=== PATIENT | male | born 1965 | race Hispanic/Latino ===

== ENCOUNTER 2018-12-21 06:32 | Outpatient (CLI) | payer BC ==
--- NOTE | 2018-12-21 07:59 | ULT ---
ABDOMINAL ULTRASOUND COMPLETE: HISTORY: Elevated LFTs. COMPARISON: 11/05/2015. FINDINGS: Status post cholecystectomy. Liver echogenicity is somewhat coarsened and increased, evidence for so me fatty change. Left renal upper pole cyst. Common bile duct 0.6 cm without significant intrahepat ic ductal dilatation. The right kidney is unremarkable. Visualized pancreas, IVC, aorta, and spleen are unremarkable. No renal hydronephrosis. No abscess or abnormal fluid collection. IMPRESSION: Coarse increased liver echogenicity, evidence for fatty change. Status post cholecystectomy. Small left upper pole renal cyst. POS: [facility]
== END 2018-12-21 06:33 | disposition home or self-care (01) ==
LOC: BICULT 06:32
PROVIDERS: ATTEND Family Medicine
DX: R79.89 Other specified abnormal findings of blood chemistry (principal); R93.2 Abnormal findings on diagnostic imaging of liver and biliary tract; K76.0 Fatty (change of) liver, not elsewhere classified; N28.1 Cyst of kidney, acquired; Z90.49 Acquired absence of other specified parts of digestive tract
CPT/HCPCS: 76700

== ENCOUNTER 2020-08-10 10:33 | Emergency (ER) | payer BC, SELFPAY ==
[2020-08-10] MEDS ORDERED: Azithromycin 250 MG TAB ONE (11:39)
[2020-08-10] MEDS ORDERED: cefTRIAXone\\ROCEPHIN 250 MG VIAL ONE (11:39)
[2020-08-10] MEDS ORDERED: Lidocaine 1% PF 5 ML VIAL ONE (11:40)
[2020-08-10 11:50] LABS: Bacteria/HPF None Seen HPF (None Seen); Bilirubin Negative (Negative); Blood, Urine Trace (Negative); Clarity Clear (Clear); Glucose, Urine (Dipstick) Greater than 1000 mg/dL (Negative); Ketone, Urine Negative (Negative); Leukocyte Negative Leu/uL (Negative); Nitrite Negative (Negative); Protein, Urine (Dipstick) Negative (Neg-Trace); RBC/HPF 0-3 HPF (0-3); Specific Gravity, Urine 1.035 (1.002-1.036); Squamous Epithelial None Seen HPF (0-3); Urobilinogen Normal mg/dL (Less than 2); WBC/HPF 0-3 HPF (0-3); pH, Urine 5.5 (5.0-9.0)
== END 2020-08-10 13:35 | disposition home or self-care (01) ==
LOC: ERS 10:33
DX: N50.89 Other specified disorders of the male genital organs (principal)
CPT/HCPCS: 81003; 81015; 96372; 99283; J0696

== ENCOUNTER 2021-09-24 15:32 | Outpatient (CLI) | payer SELFPAY ==
[2021-09-24 16:10] LABS: Hemoglobin 15.2 g/dL (13.5-17.5); Mean Corpuscular HGB CONC 33.2 g/dL (32.0-36.0); Mean Corpuscular Hemoglobin 30.5 pg (27.0-33.0); Mean Corpuscular Volume 91.8 fl (81.2-95.1); Mean Platelet Volume 12.8 fl (7.4-10.4); Platelet Count 170 10x3/uL (150-450); RBC Distribution Width 12.4 % (11.5-14.5); Red Blood Cell (RBC) Count 4.99 10x6/uL (4.32-5.72); White Blood Cell (WBC) Count 8.4 10x3/uL (3.5-10.5)
[2021-09-24 16:39] LABS: Anion Gap 14 mmol/L (10-20); BUN (Urea Nitrogen) 21 mg/dL (8.4-25.7); Calc. Creatinine Clearance 0 mL/min (70-130); Calcium 9.4 mg/dL (7.8-10.44); Carbon Dioxide 24 mmol/L (22-29); Chloride 105 mmol/L (98-107); Glucose 428 mg/dL (70-105); Potassium 4.5 mmol/L (3.5-5.1); Sodium 138 mmol/L (136-145)
[2021-09-25 00:43] LABS: SARS-CoV-2 PCR by NAA Not Detected (NotDetected)
== END 2021-09-24 15:33 | disposition home or self-care (01) ==
LOC: LABBT 15:32
PROVIDERS: ATTEND Neurological Surgery
DX: Z01.818 Encounter for other preprocedural examination (principal); M54.12 Radiculopathy, cervical region; Z20.822 Contact with and (suspected) exposure to COVID-19
CPT/HCPCS: 80048; 85027; 93005; 93010; U0003; U0005